=== PATIENT | male | born 1960 | race Caucasian/White ===

== ENCOUNTER 2018-03-08 08:55 | Emergency (ER) | payer OTHER, MEDICARE ==
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
[2018-03-08] MEDS ORDERED: OXYCODONE-ACETAMINOPHEN 5-325 MG TABLET PO ONE (11:17)
[2018-03-08] MEDS ORDERED: CYCLOBENZAPRINE HCL 10 MG TABLET PO ONE (11:17)
[2018-03-08 11:31] VITALS: BP 153/85
== END 2018-03-08 11:44 | disposition home or self-care (01) ==
LOC: ER 08:55
DX: S16.1XXA Strain of muscle, fascia and tendon at neck level, initial encounter (principal); M25.552 Pain in left hip; M79.645 Pain in left finger(s); F07.81 Postconcussional syndrome; M54.2 Cervicalgia; M54.9 Dorsalgia, unspecified; R51 Headache; M79.10 Myalgia, unspecified site; M54.5 Low back pain; M25.511 Pain in right shoulder; V89.0XXA Person injured in unspecified motor-vehicle accident, nontraffic, initial encounter; I10 Essential (primary) hypertension; E78.5 Hyperlipidemia, unspecified; F41.9 Anxiety disorder, unspecified; I25.2 Old myocardial infarction
CPT/HCPCS: 99284; 73130; 73502; 72110; 73030; 70450; 72125; L0120 ×2; L0172

== ENCOUNTER 2018-05-04 05:57 | Emergency (ER) | payer MEDICARE, OTHER ==
--- NOTE | 2018-05-04 09:42 | ER Document Report ---
Addendum entered and electronically signed by SUNITA AMOS PA-C 05/04/18 10:56: Discharge - Discharge Clinical Impression: Jaw pain Condition: Good Disposition: HOME, SELF-CARE Additional Instructions: You were seen in the emergency department this morning for jaw pain. The CT that was completed showed no evidence of infection like abscess or deep space tissue infection. This pain you are experiencing is most likely due to the nerves that provide sensation to your teeth. We have provided you with some viscous lidocaine he can apply topically to the area every 2 hours. It is important that you see a dentist in the next 48 hours. They will be the ones that can definitively treat your pain. If you are unable to open your mouth at all, you develop high fever, you feel like your throat is closing up, have di fficulty swallowing, please immediately return to the emergency department. Referrals: SAMAN DALE FNP-C [Primary Care Provider] - Follow up as needed [facility] [Outside] - Follow up as needed Original Note: ED General - General Chief Complaint: Mouth Problem Stated Complaint: MOUTH PAIN Time Seen by Provider: 05/04/18 08:23 Primary Care Provider: SAMAN DALE FNP-C [Primary Care Provider] - Follow up as needed Notes: 57-year-old male with history of multiple tooth extractions presents emergency department with severe lower jaw, mouth pain and pressure. He states this started a couple of days ago and came on abruptly. He states the pain is unbearable. He denies any fevers, chills, nausea, vomiting. He does state he is having pain with swallowing. He states he is able to open up his mouth without restriction. Patient says he has had toothaches in the past but none like this. He states the pain is deep and across his entire lower jaw. Pain extends into his neck. No other complaints. TRAVEL OUTSIDE OF THE [place] IN LAST 30 DAYS: No - Related Data Allergies/Adverse Reactions: No Known Allergies Allergy (Unverified 03/08/18 09:00) Past Medical History - Social History Smoking Status: Current Every Day Smoker Chew tobacco use (# tins/day): No Frequency of alcohol use: None Drug Abuse: None Family History: Reviewed & Not Pertinent Patient has suicidal ideation: No Patient has homicidal ideation: No - Past Medical History Cardiac Medical History: Reports: Hx Heart Attack - x1-2009, Hx Hypercholesterolemia, Hx Hypertension Renal/ Medical History: Denies: Hx Peritoneal Dialysis Past Surgical History: Reports: Hx Orthopedic Surgery - right arm Review of Systems - Review of Systems Constitutional: See HPI EENT: See HPI Cardiovascular: No symptoms reported Respiratory: See HPI Gastrointestinal: No symptoms reported Genitourinary: No symptoms reported Male Genitourinary: No symptoms reported Musculoskeletal: No symptoms reported Skin: No symptoms reported Hematologic/Lymphatic: No symptoms reported Neurological/Psychological: No symptoms reported Physical Exam - Vital signs Vitals: Temp Pulse Resp BP Pulse Ox 98.9 F 56 L 16 160/57 H 99 05/04/18 06:01 05/04/18 06:01 05/04/18 06:01 05/04/18 06:01 05/04/18 06:01 - Notes Notes: PHYSICAL EXAMINATION: Reviewed vital signs and charting by RN GENERAL: Alert, interacts well. Appears in mild distress. HEAD: Normocephalic, atraumatic. EYES: Pupils equal, round. Extraocular movements intact. ENT: Oral mucosa moist, tongue midline, gingival swelling across teeth 22-27. Rest of his lower teeth are missing. No erythema. No evidence of fluctuant pocket or purulent discharge. Severe tenderness to light palpation over the gingiva and when tapping on his lower teeth. NECK: Full range of motion. Supple, tender to palpation anterior neck, no cervical lymphadenopathy. Trachea midline. LUNGS: Clear to auscultation bilaterally, no wheezes, rales, or rhonchi. No respiratory distress. HEART: Regular rate and rhythm. No murmur ABDOMEN: soft, non-tender. Non-distended. Bowel sounds present in all 4 quadrants. no McBurney's point tenderness, no Regan sign. EXTREMITIES: Moves all 4 extremities spontaneously. No edema, No cyanosis. BACK: no cervical, thoracic, lumbar midline tenderness. No saddle anesthesia, normal distal neurovascular exam. NEUROLOGICAL: Alert and oriented x3. Normal speech. PSYCH: Normal affect, normal mood. SKIN: Warm, dry, normal turgor. No rashes or lesions noted. Course - Re-evaluation Re-evalutation: 05/04/18 09:39 57-year-old male in mild distress presents with severe jaw pain that is bilateral. He only has teeth 22 through 27 remaining in his lower jaw. He does have some gingivitis in the area of those remaining teeth. He does have severe pain that seems out of proportion to exam. Patient has had multiple tooth extractions in the past and he states none felt like this. He is also complaining of tenderness to palpation in the submandibular area that extends down into his neck. Plan is to order soft tissue face neck CT. 05/04/18 10:42 CT revealed no abscess or deep space infection. Plan is to give patient viscous lidocaine and send him home with a recommendation to go to dental. There is no evidence of abscess, patient does have gingival edema. Patient is safe and stable for discharge. - Vital Signs Vital signs: Temp Pulse Resp BP Pulse Ox 98.9 F 56 L 16 160/57 H 99 05/04/18 06:01 05/04/18 06:01 05/04/18 06:01 05/04/18 06:01 05/04/18 06:01 Discharge - Discharge Clinical Impression: Jaw pain Condition: Good Disposition: HOME, SELF-CARE Additional Instructions: You were seen in the emergency department this morning for jaw pain. The CT that was completed showed no evidence of infection like abscess or deep space tissue infection. This pain you are experiencing is most likely due to the nerves that provide sensation to your teeth. We have provided you with some viscous lidocaine he can apply topically to the area every 2 hours. It is important that you see a dentist in the next 48 hours. They will be the ones that can definitively treat your pain. If you are unable to open your mouth at all, you develop high fever, you feel like your throat is closing up, have difficulty swallowing, please immediately return to the emergency department. Referrals: SAMAN DALE, ALMITA-C [Primary Care Provider] - Follow up as needed
--- NOTE | 2018-05-04 10:29 | RADIOLOGY REPORT (SQ) ---
EXAM DESCRIPTION: CT FACIAL AREA WITHOUT COMPLETED DATE/TIME: 05/04/2018 10:00 am REASON FOR STUDY: Bilateral jaw pain, gingival swelling COMPARISON: None. TECHNIQUE: Noncontrasted images through the facial bones and orbits windowed for bone and soft tissu e. Additional coronal and sagittal reconstructed images reviewed. All images stored on PACS. All CT scanners at this facility use dose modulation, iterative reconstruction, and/or weight based d osing when appropriate to reduce radiation dose to as low as reasonably achievable (ALARA). [facility]: Dose Right [facility]: CareDose [facility]: Dose Right [facility]: Teradose 4D [facility]: [employer] RADIATION DOSE: CT Rad equipment meets quality standard of care and radiation dose reduction techniq ues were employed. CTDIvol: 30.4 mGy. DLP: 572 mGy-cm. mGy. LIMITATIONS: None. FINDINGS: FACIAL BONES: No fracture or bone lesion. ORBITS: Intact. No fracture. Symmetric intact globes and retroorbital soft tissues. PARANASAL SINUSES: Minimal right maxillary sinus disease. No nasal polyps. Maxillary sinus outlets a re patent. SOFT TISSUES: No mass or edema. INFERIOR BRAIN: Limited view. No acute findings. OTHER: No other significant finding. IMPRESSION: NO ACUTE FINDINGS. TECHNICAL DOCUMENTATION: JOB ID: [id number] Quality ID # [id number]: Final reports with documentation of one or more dose reduction techniques (e.g., Au tomated exposure control, adjustment of the mA and/or kV according to patient size, use of iterative reconstruction technique) 2010 [employer]- All Rights Reserved Reading location - IP/workstation name: [email or web address]
[2018-05-04] MEDS ORDERED: LIDOCAINE 2% VISCOUS SOLN 20 ML UDCUP PO ONE (10:44)
[2018-05-04 10:56] VITALS: BP 164/90
== END 2018-05-04 10:56 | disposition home or self-care (01) ==
LOC: ER 05:57
DX: R68.84 Jaw pain (principal); K05.10 Chronic gingivitis, plaque induced; K08.409 Partial loss of teeth, unspecified cause, unspecified class; F17.200 Nicotine dependence, unspecified, uncomplicated; I10 Essential (primary) hypertension; I25.2 Old myocardial infarction
CPT/HCPCS: 99283; 70486; J3490

== ENCOUNTER 2020-01-23 15:45 | Emergency (ER) | payer OTHER, MEDICAID ==
--- NOTE | 2020-01-23 16:17 | ER Document Report ---
ED Medical Screen (RME) - General Stated Complaint: COUGH, VOMITING, CHILLS, SORE THROAT Time Seen by Provider: 01/23/20 16:13 Primary Care Provider: SAMAN DALE FNP-C [Primary Care Provider] - Follow up as needed Mode of Arrival: Wheelchair Information source: Patient Notes: HPI; 59-year-old male presents to the emergency room complaining with decreased appetite cough and shortness of breath for the past week. He denies any fevers. Not taking any medications for symptoms. States has had multiple exposures to COVID-19 with family members. Unsure when his last exposure to COVID-19 was. PE: Alert and oriented x3. Mild distress noted. Lungs scattered rhonchi no wheezes no rales. Heart: Regular rate rhythm without murmurs, rubs, gallops. Patient was evaluated during the global COVID-19 pandemic and that diagnosis was suspected/considered upon their initial presentation. Their evaluation, treatment and testing was consistent with current guidelines for patients who presents with complaints or systems that may be related to COVID-19. I have greeted and performed a rapid initial assessment of this patient. A comprehensive ED assessment and evaluation of the patient, analysis of test results and completion of the medical decision making process will be conducted by additional ED providers. I have specifically instructed the patient or family members with the patient to immediately return to any nursing staff should anything change in the patient's condition or with their chief complaint. TRAVEL OUTSIDE OF THE [place] IN LAST 30 DAYS: No - Related Data Allergies/Adverse Reactions: No Known Allergies Allergy (Unverified 03/08/18 09:00) Past Medical History - Past Medical History Cardiac Medical History: Reports: Hx Heart Attack - x1-2008, Hx Hypercholesterolemia, Hx Hypertension Renal/ Medical History: Denies: Hx Peritoneal Dialysis Past Surgical History: Reports: Hx Orthopedic Surgery - right arm Physical Exam - Vital signs Vitals: Temp Pulse Resp BP Pulse Ox 98.3 F 67 16 150/90 H 96 01/23/20 15:53 01/23/20 15:53 01/23/20 15:53 01/23/20 15:53 01/23/20 15:53 Course - Vital Signs Vital signs: Temp Pulse Resp BP Pulse Ox 98.3 F 67 16 150/90 H 96 01/23/20 15:53 01/23/20 15:53 01/23/20 15:53 01/23/20 15:53 01/23/20 15:53 Doctor's Discharge - Discharge Referrals: SAMAN DALE FNP-C [Primary Care Provider] - Follow up as needed
--- NOTE | 2020-01-23 17:09 | RADIOLOGY REPORT (SQ) ---
EXAM DESCRIPTION: CHEST SINGLE VIEW IMAGES COMPLETED DATE/TIME: 01/23/2020 5:00 pm REASON FOR STUDY: cough COMPARISON: None. EXAM PARAMETERS: NUMBER OF VIEWS: One view. TECHNIQUE: Single frontal radiographic view of the chest acquired. RADIATION DOSE: NA LIMITATIONS: None. FINDINGS: LUNGS AND PLEURA: Very minimal opacity at the lung bases. No pneumothorax. MEDIASTINUM AND HILAR STRUCTURES: No masses. Contour normal. HEART AND VASCULAR STRUCTURES: Heart normal in size. Normal vasculature. BONES: No acute findings. HARDWARE: None in the chest. OTHER: No other significant finding. IMPRESSION: Minimal basilar opacities. TECHNICAL DOCUMENTATION: JOB ID: [id number] 2010 [employer]- All Rights Reserved Reading location - IP/workstation name: [email or web address]
[2020-01-23] MEDS ORDERED: NORMAL SALINE 1000 ML 1,000 ML IV ONE (17:15)
--- NOTE | 2020-01-23 17:47 | ER Document Report ---
ED General - General Stated Complaint: COUGH, VOMITING, CHILLS, SORE THROAT Time Seen by Provider: 01/23/20 16:13 Primary Care Provider: SAMAN DALE FNP-C [Primary Care Provider] - 01/26/20 Mode of Arrival: Wheelchair Notes: 59 year old male is here with fear of covid disease. He tells me he has felt sick for about 2 weeks with a poor appetite, diarrhea, muscle aches and extreme fatigue. He has had household members with covid in past month - and grandchild. He has a past history of htn, hld and anxiety. No fevers that he is aware of. Appetite has been poor too. TRAVEL OUTSIDE OF THE [place] IN LAST 30 DAYS: No - HPI Onset/Duration: Gradual Quality of pain: No pain Severity: Moderate Associated symptoms: Body/muscle aches, Diarrhea, Weakness Exacerbated by: Denies Relieved by: Denies Similar symptoms previously: No Recently seen / treated by doctor: No - Related Data Allergies/Adverse Reactions: No Known Allergies Allergy (Verified 01/23/20 18:45) Past Medical History - General Information source: Patient - Social History Smoking Status: Never Smoker Family History: Reviewed & Not Pertinent - Past Medical History Cardiac Medical History: Reports: Hx Heart Attack - x1-2008, Hx Hypercholesterolemia, Hx Hypertension Renal/ Medical History: Denies: Hx Peritoneal Dialysis Past Surgical History: Reports: Hx Orthopedic Surgery - right arm Review of Systems - Review of Systems Constitutional: See HPI, Malaise, Weakness. denies: No symptoms reported EENT: No symptoms reported Cardiovascular: No symptoms reported Respiratory: See HPI, Cough. denies: No symptoms reported Gastrointestinal: See HPI, Diarrhea. denies: No symptoms reported Genitourinary: No symptoms reported Male Genitourinary: No symptoms reported Musculoskeletal: No symptoms reported Skin: No symptoms reported Hematologic/Lymphatic: No symptoms reported Neurological/Psychological: No symptoms reported Physical Exam - Vital signs Vitals: Temp Pulse Resp BP Pulse Ox 98.3 F 67 16 150/90 H 96 01/23/20 15:53 01/23/20 15:53 01/23/20 15:53 01/23/20 15:53 01/23/20 15:53 Interpretation: Normal - General General appearance: Appears well, Alert - HEENT Head: Normocephalic, Atraumatic Eyes: Normal Pupils: PERRL - Respiratory Respiratory status: No respiratory distress Chest status: Nontender Breath sounds: Normal Chest palpation: Normal - Cardiovascular Rhythm: Regular Heart sounds: Normal auscultation Murmur: No - Abdominal Inspection: Normal Distension: No distension Bowel sounds: Normal Tenderness: Nontender Organomegaly: No organomegaly - Back Back: Normal, Nontender - Extremities General upper extremity: Normal inspection, Nontender, Normal color, Normal ROM, Normal temperature General lower extremity: Normal inspection, Nontender, Normal color, Normal ROM, Normal temperature, Normal weight bearing. No: Karlene's sign - Neurological Neuro grossly intact: Yes Cognition: Normal Orientation: AAOx4 Keyshawn Coma Scale Eye Opening: Spontaneous Dillon Coma Scale Verbal: Oriented Dillon Coma Scale Motor: Obeys Commands Dillon Coma Scale Total: 15 Speech: Normal Sensory: Normal - Psychological Associated symptoms: Normal affect, Normal mood - Skin Skin Temperature: Warm Skin Moisture: Dry Skin Color: Normal Course - Re-evaluation Re-evalutation: 01/23/20 19:46 MDM 59 year old male arrives with complaints of overwhelming fatigue and covid exposure as well as cough. No fever or chills but close family members with covid. He is clinically stable here and no hypoxia. We discussed return here precautions. He expressed understanding. - Vital Signs Vital signs: Temp Pulse Resp BP Pulse Ox 98.3 F 67 16 150/90 H 96 01/23/20 15:53 01/23/20 15:53 01/23/20 15:53 01/23/20 15:53 01/23/20 15:53 - Laboratory Result Diagrams: 01/23/20 18:00 01/23/20 18:00 Laboratory results interpreted by me: 01/23/20 18:00 Magnesium 2.4 H Alkaline Phosphatase 130 H - Diagnostic Test Radiology reviewed: Image reviewed, Reports reviewed - EKG Interpretation by Me EKG shows normal: Sinus rhythm Rate: Bradycardia Rhythm: NSR - Sinus Alban 56 BPM left axis poor r wave progression no st e levation or depression my interpretation. Discharge - Discharge Clinical Impression: Pneumonitis, COVID-19 Condition: Stable Disposition: HOME, SELF-CARE Instructions: COVID-19 Guidance for Persons Under Investigation, Acetaminophen, Pneumonia ([facility]) Additional Instructions: Rest, fluids, medicines as directed. Please return here for any problems or any concerns including but not limited to chest pain or shortness of breath. Antibiotics have been sent to [facility]. Follow up with your doctor Thursday 01/25. Prescriptions: Azithromycin [Zithromax 250 mg Tablet] 500 mg PO DAILY #10 tablet Referrals: SAMAN DALE FNP-C [Primary Care Provider] - 01/26/20
[2020-01-23 18:13] LABS: ABSOLUTE EOSINOPHILS # (AUTO) 0.1 10^3/uL (0.0-0.6); ABSOLUTE LYMPHOCYTES (AUTO) 1.5 10^3/uL (0.5-4.7); ABSOLUTE MONOCYTES (AUTO) 0.6 10^3/uL (0.1-1.4); ABSOLUTE NEUT (AUTO) 3.3 10^3/uL (1.7-8.2); BASOPHILS % (AUTO) 0.7 % (0-2); EOSINOPHILS % (AUTO) 1.1 % (0-6); HEMATOCRIT 45.8 % (37.9-51.0); LYMPHOCYTES % (AUTO) 27.2 % (13-45); MEAN CORPUSCULAR HEMOGLOBIN 31.7 pg (27.0-33.4); MEAN CORPUSCULAR HGB CONC 34.9 g/dL (32.0-36.0); MEAN CORPUSCULAR VOLUME 91 fl (80-97); MONOCYTES % (AUTO) 11.3 % (3-13); PLATELET COUNT 282 10^3/uL (150-450); RED BLOOD COUNT 5.04 10^6/uL (4.35-5.55); RED CELL DISTRIBUTION WIDTH 13.6 % (11.5-14.0); SEGMENTED NEUTROPHILS % (AUTO) 59.7 % (42-78); TOTAL CELLS COUNTED % (AUTO) 100 %; WHITE BLOOD COUNT 5.5 10^3/uL (4.0-10.5)
[2020-01-23 18:29] LABS: ALBUMIN 4.2 g/dL (3.5-5.0); ALKALINE PHOSPHATASE 130 U/L (38-126); ANION GAP 9 (5-19); ASPARTATE AMINO TRANSFERASE 28 U/L (17-59); BILIRUBIN,DIRECT 0.3 mg/dL (0.0-0.4); BLOOD UREA NITROGEN 18 mg/dL (7-20); CALCIUM 9.5 mg/dL (8.4-10.2); CARBON DIOXIDE 27 mmol/L (22-30); CHLORIDE 102 mmol/L (98-107); GLUCOSE 91 mg/dL (75-110); POTASSIUM 4.6 mmol/L (3.6-5.0); TOTAL PROTEIN 7.1 g/dL (6.3-8.2)
[2020-01-23 18:50] LABS: A TYPE INFLUENZA AG NEGATIVE (NEGATIVE); B INFLUENZA AG NEGATIVE (NEGATIVE)
[2020-01-23 20:24] VITALS: BP 144/61
--- NOTE | 2020-01-25 20:18 | EKG REPORT ---
SEVERITY:- OTHERWISE NORMAL ECG - SINUS BRADYCARDIA BORDERLINE LEFT AXIS DEVIATION : Confirmed by: Branden Becerra MD 25-Jan-2020 20:16:42
== END 2020-01-23 20:37 | disposition home or self-care (01) ==
LOC: ER 15:45
DX: U07.1 COVID-19 (principal); J12.89 Other viral pneumonia; R05 Cough; R11.10 Vomiting, unspecified; J02.9 Acute pharyngitis, unspecified; R63.0 Anorexia; R19.7 Diarrhea, unspecified; M79.10 Myalgia, unspecified site; R53.83 Other fatigue; I10 Essential (primary) hypertension; E78.5 Hyperlipidemia, unspecified; F41.9 Anxiety disorder, unspecified; R53.81 Other malaise; R53.1 Weakness; I25.2 Old myocardial infarction
CPT/HCPCS: 93005; 99285; 96360; 36415; 83605; 83735; 85025; 87635; 80053; 84484; 87804; 71045; 93010; J7030; C9803